=== PATIENT | female | born 1960 | race Native Hawaiian/Other Pacific Islander ===

== ENCOUNTER 2017-03-16 14:28 | Inpatient (IN) | payer OTHER ==
[2017-03-16] VITALS (9 sets, daily range): BP systolic 111–143; BP diastolic 56–80; TEMP 98–98.7; Ht 152.4 cm; Wt 54.9 kg
[~2017-03-16] VITALS: Ht 152.4 cm; Wt 54.9 kg
[2017-03-16 15:33] LABS: PLATELET COUNT 126 K/uL (152-353)
[2017-03-16 15:37] LABS: POTASSIUM 4.3 mmol/L (3.6-5.2); SODIUM 136 mmol/L (136-145)
[2017-03-16 15:58] LABS: PARTIAL THROMBOPLASTIN TIME 29.8 SECONDS (24.5-33.6)
[2017-03-17] VITALS: BP 93/47; TEMP 98.1
[2017-03-17 04:00] VITALS: BP 108/62; TEMP 98.1
[2017-03-17 08:00] VITALS: BP 91/50; TEMP 98.2
[2017-03-17 12:00] VITALS: BP 90/52; TEMP 98.5
[2017-03-17 16:00] VITALS: BP 90/50; TEMP 99.3
[2017-03-17 19:48] VITALS: BP 104/57; TEMP 99
[2017-03-18] VITALS: BP 127/53; TEMP 99.2
[2017-03-18 04:00] VITALS: BP 110/64; TEMP 99
[2017-03-18 08:00] VITALS: BP 100/53; TEMP 99.1
[2017-03-18 12:00] VITALS: BP 99/65; TEMP 99.4
[2017-03-18 16:00] VITALS: BP 93/48; TEMP 98.8
== END 2017-03-18 20:25 | disposition home or self-care (01) | DRG 440 ==
LOC: ED 14:28 → MED/SURG 16:40
PROVIDERS: ADMIT Emergency Medicine
DX: K85.80 Other acute pancreatitis without necrosis or infection (principal); E03.8 Other specified hypothyroidism; K80.80 Other cholelithiasis without obstruction; F41.8 Other specified anxiety disorders
CPT/HCPCS: 36415; 80053; 81000; 82150; 83605; 83690; 84484; 85027; 85610; 85730; 93005; 96360; 96361; 96365; 96366; 96375; 96376; 99284; J0744; J1885; J2270; J2405; J2765; J3490

== ENCOUNTER 2017-05-06 08:35 | Outpatient (CLI) | payer OTHER | END 2017-05-06 19:16 | disposition home or self-care (01) | LOC: MAMMO 08:35 | DX: Z12.31 Encounter for screening mammogram for malignant neoplasm of breast (principal) ==

== ENCOUNTER 2017-06-15 10:30 | Outpatient (CLI) | payer OTHER | END 2017-06-15 19:56 | disposition home or self-care (01) | LOC: RESP 10:30 | DX: J84.10 Pulmonary fibrosis, unspecified (principal) | CPT/HCPCS: 94640; 94664 ==

== ENCOUNTER 2017-07-26 09:38 | Outpatient (CLI) | payer OTHER | END 2017-07-26 19:55 | disposition home or self-care (01) | LOC: LABW 09:38 | DX: J84.89 Other specified interstitial pulmonary diseases (principal) | CPT/HCPCS: 36415; 83516; 83880; 86038; 86200; 86225; 86235; 86255; 86431 ==

== ENCOUNTER 2017-08-15 09:42 | Outpatient (CLI) | payer OTHER ==
[2017-08-15 10:17] LABS: PLATELET COUNT 101 K/uL (152-353)
[2017-08-15 11:12] LABS: POTASSIUM 3.9 mmol/L (3.6-5.2)
== END 2017-08-15 19:22 | disposition home or self-care (01) ==
LOC: LABW 09:42
PROVIDERS: Internal Medicine Hematology & Oncology
DX: E83.19 Other disorders of iron metabolism (principal); E80.1 Porphyria cutanea tarda
CPT/HCPCS: 36415; 80053; 82728; 83540; 83550; 85027

== ENCOUNTER 2017-09-01 12:37 | Outpatient (CLI) | payer OTHER | END 2017-09-01 22:49 | disposition home or self-care (01) | LOC: LABW 12:37 | DX: M06.9 Rheumatoid arthritis, unspecified (principal) | CPT/HCPCS: 36415; 86200 ==

== ENCOUNTER 2018-01-19 10:40 | Outpatient (CLI) | payer OTHER | END 2018-01-19 19:31 | disposition home or self-care (01) | LOC: LABW 10:40 | DX: E83.19 Other disorders of iron metabolism (principal) | CPT/HCPCS: 36415; 85014; 85018; 99195 ==

== ENCOUNTER 2018-01-23 09:27 | Outpatient (CLI) | payer OTHER | END 2018-01-23 20:38 | disposition home or self-care (01) | LOC: US 09:27 | DX: B18.2 Chronic viral hepatitis C (principal) ==

== ENCOUNTER 2018-02-16 08:52 | Outpatient (CLI) | payer OTHER | END 2018-02-16 22:07 | disposition home or self-care (01) | LOC: LABW 08:52 | DX: E83.19 Other disorders of iron metabolism (principal); Z41.8 Encounter for other procedures for purposes other than remedying health state | CPT/HCPCS: 36415; 85014; 85018; 99195 ==

== ENCOUNTER 2018-03-16 08:25 | Outpatient (CLI) | payer OTHER ==
[2018-03-16 09:34] LABS: PLATELET COUNT 94 K/uL (152-353)
== END 2018-03-16 20:06 | disposition home or self-care (01) ==
LOC: LABW 08:25 → LAB 08:25 → INF 08:25
PROVIDERS: Internal Medicine Medical Oncology
DX: E83.19 Other disorders of iron metabolism (principal); Z41.8 Encounter for other procedures for purposes other than remedying health state
CPT/HCPCS: 36415; 85027; 96360; 99195

== ENCOUNTER 2018-03-30 10:15 | Outpatient (CLI) | payer OTHER ==
[2018-03-30 10:51] LABS: PLATELET COUNT 129 K/uL (152-353)
[2018-03-30 11:02] LABS: POTASSIUM 3.6 mmol/L (3.6-5.2)
== END 2018-03-30 21:52 | disposition home or self-care (01) ==
LOC: LABW 10:15
PROVIDERS: Nurse Practitioner Family
DX: E83.119 Hemochromatosis, unspecified (principal); D64.9 Anemia, unspecified
CPT/HCPCS: 36415; 80053; 82728; 83540; 83550; 85027

== ENCOUNTER 2018-06-15 08:57 | Outpatient (CLI) | payer OTHER | END 2018-06-15 21:35 | disposition home or self-care (01) | LOC: MAMMO 08:57 | DX: Z12.31 Encounter for screening mammogram for malignant neoplasm of breast (principal) ==

== ENCOUNTER 2018-07-06 09:41 | Outpatient (CLI) | payer OTHER ==
[2018-07-06 09:54] LABS: PLATELET COUNT 120 K/uL (152-353)
== END 2018-07-06 22:22 | disposition home or self-care (01) ==
LOC: LABW 09:41
PROVIDERS: Internal Medicine Medical Oncology
DX: E80.1 Porphyria cutanea tarda (principal)
CPT/HCPCS: 36415; 80053; 82728; 83540; 83550; 85027

== ENCOUNTER 2018-11-16 09:30 | Outpatient (CLI) | payer OTHER | END 2018-11-16 23:07 | disposition home or self-care (01) | LOC: US 09:30 | DX: R10.11 Right upper quadrant pain (principal) ==

== ENCOUNTER 2018-12-15 09:39 | Outpatient (CLI) | payer OTHER ==
[2018-12-15 09:55] LABS: PLATELET COUNT 113 K/uL (152-353)
[2018-12-15 10:18] LABS: POTASSIUM 3.9 mmol/L (3.6-5.2)
== END 2018-12-15 23:45 | disposition home or self-care (01) ==
LOC: LABW 09:39
PROVIDERS: Nurse Practitioner
DX: E03.9 Hypothyroidism, unspecified (principal); E78.00 Pure hypercholesterolemia, unspecified; E83.110 Hereditary hemochromatosis; R53.82 Chronic fatigue, unspecified; E53.8 Deficiency of other specified B group vitamins
CPT/HCPCS: 36415; 80053; 80061; 82607; 82728; 83540; 84443; 85027

== ENCOUNTER 2019-03-07 10:54 | Outpatient (CLI) | payer OTHER | END 2019-03-07 22:59 | disposition home or self-care (01) | LOC: RAD 10:54 | DX: Z13.820 Encounter for screening for osteoporosis (principal) ==

== ENCOUNTER 2019-06-06 10:17 | Day surgery (SDC) | payer OTHER ==
[2019-06-06 11:41] LABS: PLATELET COUNT 100 K/uL (152-353)
== END 2019-06-06 14:22 | disposition home or self-care (01) ==
LOC: OR 10:17
PROVIDERS: Internal Medicine Gastroenterology
PROC: 0DBP8ZZ Excision of Rectum, Via Natural or Artificial Opening Endoscopic (ICD-10-PCS; principal; 2019-06-06)
PROC: 0DBN8ZZ Excision of Sigmoid Colon, Via Natural or Artificial Opening Endoscopic (ICD-10-PCS; 2019-06-06)
DX: K63.5 Polyp of colon (principal); K62.1 Rectal polyp; K64.8 Other hemorrhoids; Z12.11 Encounter for screening for malignant neoplasm of colon
CPT/HCPCS: 80053; 85027; J2001; J2250; J2405; J2704

== ENCOUNTER 2019-06-20 09:39 | Outpatient (CLI) | payer OTHER | END 2019-06-20 21:08 | disposition home or self-care (01) | LOC: MAMMO 09:39 | DX: Z12.31 Encounter for screening mammogram for malignant neoplasm of breast (principal); M54.9 Dorsalgia, unspecified ==

== ENCOUNTER 2019-06-28 17:15 | Outpatient (CLI) | payer OTHER | END 2019-06-28 22:44 | disposition home or self-care (01) | LOC: LAB 17:15 | DX: B18.2 Chronic viral hepatitis C (principal) | CPT/HCPCS: 36415; 87522 ==

== ENCOUNTER 2019-10-25 17:30 | Outpatient (CLI) | payer OTHER ==
[2019-10-25 18:12] LABS: PLATELET COUNT 115 K/uL (152-353)
== END 2019-10-25 19:00 | disposition home or self-care (01) ==
LOC: LABW 17:30
PROVIDERS: Internal Medicine Medical Oncology
DX: E80.1 Porphyria cutanea tarda (principal); E83.118 Other hemochromatosis
CPT/HCPCS: 36415; 80053; 82728; 83540; 83550; 85027

== ENCOUNTER 2019-11-22 09:09 | Outpatient (CLI) | payer OTHER | END 2019-11-22 21:35 | disposition home or self-care (01) | LOC: LAB 09:09 | DX: Z20.828 Contact with and (suspected) exposure to other viral communicable diseases (principal) | CPT/HCPCS: 87635; G2023; U0002 ==

== ENCOUNTER 2019-12-03 13:48 | Emergency (ER) | payer OTHER ==
[~2019-12-03] VITALS: Ht 152.4 cm; Wt 57.2 kg
[2019-12-03] MEDS ORDERED: EUTHYROX50 MCG PO (14:30)
[2019-12-03] MEDS ORDERED: CLON1TAB18 PO (14:30)
[2019-12-03] MEDS ORDERED: HYDRTAB76 PO (14:31)
[2019-12-03] MEDS ORDERED: PANTOPRAZOLE 40MG TA PO (14:31)
[2019-12-03 18:54] LABS: PLATELET COUNT 96 K/uL (152-353)
[2019-12-03 19:04] LABS: POTASSIUM 4.3 mmol/L (3.6-5.2)
[2019-12-03 22:50] VITALS: BP 116/60; TEMP 98.7
== END 2019-12-03 22:50 | disposition home or self-care (01) ==
LOC: ED 13:48
PROVIDERS: General Practice
DX: K59.09 Other constipation (principal)
CPT/HCPCS: 36415; 80053; 81000; 83735; 85027; 96360; 96374; 99284; J1885; Q9963

== ENCOUNTER 2019-12-05 13:11 | Outpatient (CLI) | payer OTHER ==
[~2019-12-05 13:11] MED LIST: CLON1TAB18 PO; EUTHYROX50 MCG PO; HYDRTAB76 PO; PANTOPRAZOLE 40MG TA PO
== END 2019-12-05 21:33 | disposition home or self-care (01) ==
LOC: LAB 13:11
DX: Z20.828 Contact with and (suspected) exposure to other viral communicable diseases (principal)
CPT/HCPCS: 87635; G2023; U00003

== ENCOUNTER 2020-05-06 17:13 | Outpatient (CLI) | payer OTHER ==
[2020-05-06 17:33] LABS: PLATELET COUNT 83 K/uL (152-353)
[2020-05-06 17:52] LABS: POTASSIUM 3.4 mmol/L (3.6-5.2)
== END 2020-05-06 19:40 | disposition home or self-care (01) ==
LOC: LABW 17:13
PROVIDERS: ATTEND Nurse Practitioner Adult Health
DX: E80.1 Porphyria cutanea tarda (principal); E83.118 Other hemochromatosis
CPT/HCPCS: 36415; 80053; 82728; 83540; 83550; 85027

== ENCOUNTER 2020-06-13 17:19 | Outpatient (CLI) | payer OTHER ==
[2020-06-13 17:37] LABS: PLATELET COUNT 94 K/uL (152-353)
[2020-06-13 17:51] LABS: POTASSIUM 3.5 mmol/L (3.6-5.2)
== END 2020-06-13 23:59 | disposition home or self-care (01) ==
LOC: LABW 17:19
PROVIDERS: ATTEND Internal Medicine Gastroenterology
DX: B18.2 Chronic viral hepatitis C (principal)
CPT/HCPCS: 36415; 80053; 85027; 85610

== ENCOUNTER 2020-12-22 16:14 | Outpatient (CLI) | payer OTHER ==
[2020-12-22 16:29] LABS: PLATELET COUNT 128 K/uL (152-353)
[2020-12-22 16:49] LABS: POTASSIUM 3.4 mmol/L (3.6-5.2)
== END 2020-12-22 21:08 | disposition home or self-care (01) ==
LOC: LABW 16:14
PROVIDERS: ATTEND Nurse Practitioner Adult Health
DX: E80.1 Porphyria cutanea tarda (principal); E83.118 Other hemochromatosis
CPT/HCPCS: 36415; 80053; 82728; 83540; 83550; 85027

== ENCOUNTER → 2021-02-11 | Outpatient (CLI) | payer OTHER | LOC: US 08:34 | PROVIDERS: ATTEND Internal Medicine Gastroenterology | DX: R10.84 Generalized abdominal pain (principal) ==

== ENCOUNTER 2021-03-19 15:06 | Outpatient (CLI) | payer OTHER ==
[2021-03-19 17:12] LABS: POTASSIUM 3.4 mmol/L (3.6-5.2); SODIUM 138 mmol/L (136-145)
== END 2021-03-19 19:01 | disposition home or self-care (01) ==
LOC: LABW 15:06 → MAMMO 15:06
PROVIDERS: ATTEND Family Medicine
DX: Z12.31 Encounter for screening mammogram for malignant neoplasm of breast (principal); E80.1 Porphyria cutanea tarda; E83.118 Other hemochromatosis; D64.89 Other specified anemias
CPT/HCPCS: 36415; 80053; 82728; 83540; 84100; 85044

== ENCOUNTER 2021-03-24 15:44 | Outpatient (CLI) | payer OTHER ==
[2021-03-24 16:44] LABS: PLATELET COUNT 96 K/uL (152-353)
== END 2021-03-24 20:09 | disposition home or self-care (01) ==
LOC: LAB 15:44
PROVIDERS: ATTEND Internal Medicine Medical Oncology
DX: E80.1 Porphyria cutanea tarda (principal); D64.89 Other specified anemias; E83.118 Other hemochromatosis
CPT/HCPCS: 36415; 82728; 83540; 83550; 85027

== ENCOUNTER 2021-12-08 13:22 | Outpatient (CLI) | payer BC ==
[2021-12-08 13:47] LABS: PLATELET COUNT 99 K/uL (152-353)
[2021-12-08 13:52] LABS: POTASSIUM 3.9 mmol/L (3.6-5.2)
== END 2021-12-08 18:53 | disposition home or self-care (01) ==
LOC: LABW 13:22
PROVIDERS: ATTEND Nurse Practitioner Family
DX: E80.1 Porphyria cutanea tarda (principal); E83.118 Other hemochromatosis; D64.89 Other specified anemias
CPT/HCPCS: 36415; 80053; 82607; 82728; 82746; 83540; 83550; 85027

== ENCOUNTER 2021-12-31 11:15 | Emergency (ER) | payer BC ==
[~2021-12-31] VITALS: Ht 152.4 cm; Wt 57.2 kg
[2021-12-31 11:20] VITALS: TEMP 98
[2021-12-31 12:02] LABS: PLATELET COUNT 108 K/uL (152-353)
[2021-12-31 12:05] LABS: POTASSIUM 2.8 mmol/L (3.6-5.2)
[2021-12-31 14:39] VITALS: BP 122/69
== END 2021-12-31 14:46 | disposition home or self-care (01) ==
LOC: ED 11:15
PROVIDERS: Emergency Medicine
DX: F41.8 Other specified anxiety disorders (principal); E87.6 Hypokalemia; W01.0XXA Fall on same level from slipping, tripping and stumbling without subsequent striking against object, initial encounter; Y92.89 Other specified places as the place of occurrence of the external cause
CPT/HCPCS: 36415; 80048; 80307; 81002; 85027; 96360; 96361; 96365; 96366; 99284

== ENCOUNTER 2022-03-08 11:19 | Outpatient (CLI) | payer BC ==
[2022-03-08 11:37] LABS: PLATELET COUNT 97 K/uL (152-353)
[2022-03-08 11:46] LABS: POTASSIUM 3.5 mmol/L (3.6-5.2)
== END 2022-03-08 19:03 | disposition home or self-care (01) ==
LOC: LABW 11:19
PROVIDERS: ATTEND Family Medicine
DX: G89.4 Chronic pain syndrome (principal); F41.9 Anxiety disorder, unspecified; E87.6 Hypokalemia; D69.6 Thrombocytopenia, unspecified
CPT/HCPCS: 36415; 80053; 85027

== ENCOUNTER 2022-04-01 11:19 | Outpatient (CLI) | payer BC | END 2022-04-01 21:59 | disposition home or self-care (01) | LOC: RAD 11:19 | PROVIDERS: ATTEND Family Medicine | DX: R05.9 Cough, unspecified (principal); R50.9 Fever, unspecified | CPT/HCPCS: 87502 ==

== ENCOUNTER 2022-04-28 09:09 | Outpatient (CLI) | payer BC | END 2022-04-28 19:36 | disposition home or self-care (01) | LOC: LABW 09:09 | PROVIDERS: ATTEND Family Medicine | DX: R05.9 Cough, unspecified (principal); R50.9 Fever, unspecified; R51.9 Headache, unspecified; J44.9 Chronic obstructive pulmonary disease, unspecified | CPT/HCPCS: 87502 ==

== ENCOUNTER 2022-05-26 13:04 | Outpatient (CLI) | payer BC, OTHER | END 2022-05-26 19:00 | disposition home or self-care (01) | LOC: CT 13:04 | PROVIDERS: ATTEND Family Medicine | DX: F17.210 Nicotine dependence, cigarettes, uncomplicated (principal); J44.9 Chronic obstructive pulmonary disease, unspecified ==

== ENCOUNTER 2022-08-09 15:12 | Outpatient (CLI) | payer OTHER | END 2022-08-09 19:23 | disposition home or self-care (01) | LOC: RESP 15:12 | PROVIDERS: ATTEND Internal Medicine Critical Care Medicine | DX: R91.1 Solitary pulmonary nodule (principal) | CPT/HCPCS: 93005 ==